=== PATIENT | female | born 2000 | race Two or more races ===

== ENCOUNTER 2025-06-06 18:37 | Emergency (ER) | payer BC ==
[~2025-06-06] VITALS: Ht 160 cm; Wt 59.0 kg
[2025-06-06 19:25] LABS: PLATELET COUNT (AUTO) 330 K/uL (150-450); RED BLOOD CELL COUNT(AUTO) 5.06 MIL/uL (4.0-5.2); RED CELL DISTRIBUTION WIDTH 14.6 % (11.5-15.0); WHITE BLOOD COUNT (AUTO) 8.9 K/uL (4.3-11.0)
[2025-06-06 19:32] LABS: CALCIUM, SERUM 9.7 mg/dL (8.5-10.1); CREATININE 0.7 mg/dL (0.6-1.3); SODIUM SERUM 134 mmol/L (136-145); UREA NITROGEN, BLOOD 8 mg/dL (7-18)
[2025-06-06 19:45] LABS: NT-PRO BNP 22 pg/mL (0-125)
[2025-06-06 20:33] VITALS: BP 122/80; TEMP 98.3; O2SAT 99
== END 2025-06-06 20:33 | disposition home or self-care (01) ==
LOC: ER 18:55
DX: R07.89 Other chest pain (principal)
CPT/HCPCS: 36415; 71045-TC; 80048-TC; 83880; 84484-TC; 85025-TC